=== PATIENT | female | born 1950 | race African-American/Black ===

== ENCOUNTER 2020-02-03 16:03 | Outpatient (CLI) | payer MEDICARE ==
--- NOTE | 2020-02-03 17:26 | ULT ---
LEFT LOWER EXTREMITY VENOUS ULTRASOUND: 02/03/20 COMPARISON: None. HISTORY: Left lower extremity pain. TECHNIQUE: Multiplanar hollingsworth scale and color Doppler images were obtained in a left lower extremity venous ultras ound. Spectral analysis of the Doppler waveforms were performed. FINDINGS: The left common femoral vein, profunda femoral vein, superficial femoral vein, popliteal vein are nor mal in appearance without visible thrombus. These vessels demonstrate normal compression, flow and au gmentation. The posterior tibial vein and greater saphenous vein are also patent. IMPRESSION: No evidence of DVT. POS: [facility]OR
--- NOTE | 2020-02-03 17:27 | RAD ---
AP CHEST: 02/03/20 INDICATIONS: Chest pain, shortness of breath. No comparisons. FINDINGS: Lungs appear clear of infiltrate. Heart size within normal range. Vascularity is within normal range. IMPRESSION: No acute process. POS: AGW
== END 2020-02-03 16:04 | disposition home or self-care (01) ==
LOC: ULT 16:03
PROVIDERS: ATTEND Family Medicine
DX: M79.662 Pain in left lower leg (principal); R91.8 Other nonspecific abnormal finding of lung field
CPT/HCPCS: 71045

== ENCOUNTER 2020-05-13 16:59 | Emergency (ER) | payer MEDICARE | END 2020-05-13 17:39 | disposition home or self-care (01) | LOC: ERS 16:59 | DX: I10 Essential (primary) hypertension (principal); Z79.82 Long term (current) use of aspirin | CPT/HCPCS: 99283 ==

== ENCOUNTER 2022-03-01 09:37 | Emergency (ER) | payer MEDICARE ==
[2022-03-01] MEDS ORDERED: Ondansetron PF 4 MG/2 ML Vial ONE (10:21)
[2022-03-01 10:33] LABS: #Basophils 0.1 thou/uL (0.0-0.2); #Eosinphils 0.1 thou/uL (0.0-0.7); #Lymphocytes 1.8 thou/uL (1.20-3.40); #Monocytes 0.3 thou/uL (0.11-0.59); #Neutrophils 2.9 thou/uL (1.40-6.50); %Basophils 1.9 % (0.0-1.0); %Lymphocytes 33.9 % (21.0-51.0); %Monocytes 6.1 % (0.0-10.0); Hemoglobin 13.3 g/dL (12.0-16.0); Mean Corpuscular HGB CONC 32.8 g/dL (32.0-36.0); Mean Corpuscular Hemoglobin 29.8 pg (27.0-31.0); Mean Platelet Volume 6.2 fL (7.4-10.4); Platelet Count 250 thou/uL (130-400); RBC Distribution Width 13.3 % (11.5-14.5); Red Blood Cell (RBC) Count 4.46 mill/uL (4.20-5.40); White Blood Cell (WBC) Count 5.2 thou/uL (4.8-10.8)
[2022-03-01 10:51] LABS: ALT (SGPT) 9 U/L (8-55); AST (SGOT) 11 U/L (5-34); Alkaline Phosphatase 87 U/L (40-110); Anion Gap 12 mmol/L (10-20); BUN (Urea Nitrogen) 12 mg/dL (9.8-20.1); Bilirubin, Total 0.6 mg/dL (0.2-1.2); Calc. Creatinine Clearance 0 mL/min (70-130); Calcium 9.3 mg/dL (7.8-10.44); Carbon Dioxide 24 mmol/L (23-31); Chloride 105 mmol/L (98-107); Globulin 3.3 g/dL (2.4-3.5); Glucose 102 mg/dL (80-115); Potassium 3.6 mmol/L (3.5-5.1); Protein, Total 7.3 g/dL (5.8-8.1); Sodium 137 mmol/L (136-145)
== END 2022-03-01 14:37 | disposition home or self-care (01) ==
LOC: ERS 09:37
DX: R11.2 Nausea with vomiting, unspecified (principal); R42 Dizziness and giddiness; I10 Essential (primary) hypertension; Z79.899 Other long term (current) drug therapy
CPT/HCPCS: 36415; 70450; 71045; 80053; 84484; 85025; 93005; 96374; J2405

== ENCOUNTER 2022-03-27 10:47 | Outpatient (CLI) | payer MEDICARE | END 2022-03-27 10:48 | disposition home or self-care (01) | LOC: BICMAMMO 10:47 | PROVIDERS: ATTEND Family Medicine | DX: Z12.31 Encounter for screening mammogram for malignant neoplasm of breast (principal); Z91.89 Other specified personal risk factors, not elsewhere classified | CPT/HCPCS: 77063; 77067 ==